=== PATIENT | female | born 1940 | race Caucasian/White ===

== ENCOUNTER 2020-12-10 07:49 | Inpatient (IN) | payer MEDICARE, BC ==
[~2020-12-10] VITALS: Ht 165.1 cm; Wt 86.6 kg
[~2020-12-10 07:49] MED LIST: ALEVE220 M1; ASPIRIN EC325 M1 PO; CARISOPRODOL 3350 MG PO; CENTRUM SILVER1 EAC1 PO; CITRACAL PLUS1 EACH; CITRACAL PLUS1 EACH PO; CYCLOBENZAPRINE10 MG PO; FISH OIL 1,001000 M1 PO; GELNIQUE30 GM; LISINOPRIL10 MG PO; MEDROLDOSEPACK PO; NASONEX17 GM NS; PERCOCET 5-3251 EACH PO; PREMARIN0.625 MG; RESVERATROL250 MG PO; SYNTHROID25 MCG PO; VITAMIN E400 UNIT PO
[2020-12-10] MEDS ORDERED: ELIQUIS5 MG PO (08:01)
[2020-12-10] MEDS ORDERED: LISINOPRIL20 MG PO (08:01)
[2020-12-10] MEDS ORDERED: AMITREX (08:02)
[2020-12-10] MEDS ORDERED: SYNTHROID25 MC1 PO (08:02)
[2020-12-10] MEDS ORDERED: CHLORTHALIDONE25 MG PO (08:02)
[2020-12-10 08:14] LABS: ABSOLUTE BASOPHILS 0.1 thou/uL (0.0-0.2); ABSOLUTE EOSINOPHILS 0.2 thou/uL (0.0-0.7); ABSOLUTE LYMPHOCYTES 4.3 thou/uL (0.8-5.3); ABSOLUTE MONOCYTES 0.8 thou/uL (0.0-1.2); ABSOLUTE NEUTROPHILS 4.3 thou/uL (1.6-8.1); BASOPHILS 0.9 %; EOSINOPHILS 1.9 %; HEMATOCRIT 41.8 % (37.0-47.0); HEMOGLOBIN 14.4 gm/dL (12.0-15.0); LYMPHOCYTES 44.7 %; MCH 32.6 pg (26.0-34.0); MCHC 34.5 g/dL (28.0-37.0); MCV 94.5 fL (80.0-100.0); MPV 7.8 fl. (7.2-11.1); NUCLEATED RBCS 0 /100WBC; PLATELET COUNT* 286 thou/uL (150-400); POLYS 44.5 %; RBC 4.42 mil/uL (4.20-5.00); RDW-CV 12.8 % (10.5-14.5); WBC 9.6 thou/uL (4.0-11.0)
[2020-12-10 08:15] LABS: CALCIUM 8.8 mg/dL (8.5-10.1); CREATININE 1.2 mg/dL (0.6-1.3)
[2020-12-10 08:23] LABS: APTT 21.6 Seconds (25.0-31.3); INR 0.9
[2020-12-10 08:25] LABS: ALBUMIN 3.3 g/dL (3.4-5.0); TOTAL BILIRUBIN 0.4 mg/dL (<0.1-1.0); TOTAL PROTEIN 6.8 g/dL (6.4-8.2)
[2020-12-10 10:40] LABS: URINE BILIRUBIN NEGATIVE (Negative); URINE BLOOD NEGATIVE (Negative); URINE CLARITY CLEAR; URINE COLOR YELLOW; URINE GLUCOSE-RANDOM NEGATIVE (Negative); URINE KETONES NEGATIVE (Negative); URINE PROTEIN NEGATIVE (Negative); URINE UROBILINOGEN 0.2 E.U./dl (0.2-1.0)
[2020-12-10 10:47] LABS: URINE LEUKOCYTES-REFLEX 3+ (Negative); URINE NITRITE-REFLEX POSITIVE (Negative)
[2020-12-10 10:58] LABS: CASTS None Seen /LPF (None Seen); CRYSTALS None Seen /LPF (None Seen); MUCUS None Seen strn/LPF (None Seen); SQUAMOUS 4-10 Moderate /LPF (0-3); URINE RBC 3-10 Few /HPF (0-2); URINE WBC-REFLEX >25 Many /HPF (0-5)
--- NOTE | 2020-12-10 12:54 | EKG ---
[place] [address] ELECTROCARDIOGRAM REPORT Name: DAJUAN GOLDSMITHMARLY Dia Room: [place] [address] ADM IN M.R.#: [id number] Admission: 12/10/20 Attend Phys: Minh Ocampo Discharge: Date of : 40 Date of Service: 12/10/20 0757 Report #: [id number] THIS REPORT FOR: //name// [facility] ED Test Date: 2020-12-10 Test Time: 07:57:12 Pat Name: RAFI GOLDSMITH Department: Room: [facility] Gender: F Scientific Illustrator: CD : 1940 Requested By: Balta Parra Order Number: [id number] MD: Josafat Rahman Measurements Intervals [place] Rate: 85 P: 65 [place]: 150 QRS: -33 QRSD: 99 T: 16 QT: 388 QTc: 462 Interpretive Statements Sinus rhythm Left axis deviation No previous ECG available for comparison Electronically Signed On 12-10-2020 12:54:40 [employer] by Josafat Rahman [email or web address] <ELECTRONICALLY SIGNED> By: Josafat Rahman MD, FAC 12/10/20 1254 [id number] Josafat Rahman MD, [facility] /EPI
[2020-12-10 14:50] VITALS: BP 120/60
[2020-12-10 16:14] LABS: CHOLESTEROL 209 mg/dL (<200); HDL CHOLESTEROL 67 mg/dL (>40); LDL CHOLESTEROL 122 mg/dL (<100); SERUM ASSESSMENT Clear; TC:HDL 3.1 Ratio (Not establshd); TRIGLYCERIDE 103 mg/dL (<150); VLDL 21 mg/dL (<40)
[2020-12-10 17:35] VITALS: BP 144/77
[2020-12-10 18:27] VITALS: BP 134/67
--- NOTE | 2020-12-10 18:31 | NUR ---
PT ORIENTED TO ROOM AND UNIT. BED LOW AND LOCKED, SIDE RAILS UPX3, CALL LIGHT IN REACH. TELE APPLIED. PT UNDERSDTANDS FALL RISK AND WILL USE CALL LIGHT WHEN NEEDING TO GET OUT OF BED.
[2020-12-10 20:19] VITALS: BP 112/54
[2020-12-11] VITALS: BP 109/60
[2020-12-11 04:00] VITALS: BP 133/73
[2020-12-11 04:06] LABS: GLYCOHEMOGLOBIN (HGB A1C) 5.4 % (4.8-5.6)
--- NOTE | 2020-12-11 05:43 | NUR ---
PT ADMITTED TO ROOM 231 JUST BEFORE SHIFT CHANGE; VSS, A+OX4, INTERMITTENT DIZZINESS, ROOM AIR, SR ON TELEMETRY. SHE IS ABLE TO COMMUNICATE HER NEEDS TO STAFF EFFECTIVELY. SHE HAS DENIED THE NEED FOR PAIN MEDICATION UP TO THIS TIME. SHE IS TENTATIVELY SCHEDULED TO HAVE US CAROTIDS LATER TODAY.
--- NOTE | 2020-12-11 07:25 | NUR ---
CHANGE OF SHIFT REPORT GIVERN PATIENT SEEN AT BEDSIDE, IN BED ASLEEP ASSUMED PATIENT CARE
[2020-12-11 08:00] VITALS: BP 123/65
--- NOTE | 2020-12-11 11:00 | NUR ---
CM SPOKE TO THE PT TO DISCUSS CM ASSESSMENT. PT A&O, INDEPENDENT WITH ADL'S, AND DRIVES. PT RESIDES AT HOME WITH SON. PT USES 0 DME. PT HAS 0 HX OF HH OR SNF. NO CM D/C PLANNING NEEDS ANTICIPATED. CM WILL REMAIN AVAILABLE TO ASSIST AND FOLLOW NEEDED.
[2020-12-11 12:00] VITALS: BP 119/70
[2020-12-11 16:00] VITALS: BP 125/83
[2020-12-11 20:29] VITALS: BP 122/59
[2020-12-12] VITALS: BP 133/71
[2020-12-12 04:00] VITALS: BP 123/72
--- NOTE | 2020-12-12 08:05 | NUR ---
PT IS ABLE TO COMMUNICATE HER NEEDS TO STAFF EFFECTIVELY. CURRENT PAIN MEDICATION REGIMEN HAS BEEN ADEQUATE FOR CONTROLLING HER PAIN UP TO THIS TIME. SHE HAS BEEN UP SBA TO THE COMODE OR BR OVERNIGHT WITH REPORTEDLY MINIMAL DIZZINESS. POSSIBLE MRI HEAD/COW TODAY PENDING APPROVAL. POSSIBLE DISCHARGE TODAY WELL.
[2020-12-12] MEDS ORDERED: CEFDINIR300 MG PO (08:56)
[2020-12-12 09:00] VITALS: BP 134/80
[2020-12-12 10:03] LABS: ALBUMIN 3.6 g/dL (3.4-5.0); CALCIUM 8.9 mg/dL (8.5-10.1); POTASSIUM 3.2 mmol/L (3.5-5.1); TOTAL BILIRUBIN 0.4 mg/dL (<0.1-1.0); TOTAL PROTEIN 6.7 g/dL (6.4-8.2)
[2020-12-12 12:00] VITALS: BP 123/78
[2020-12-12 12:58] VITALS: BP 134/80
--- NOTE | 2020-12-12 13:18 | NUR ---
CM INFORMED DURING PRIME ROUNDING OF THE PLAN OF CARE FOR THE PT. PLAN FOR PT TO D/C HOME TODAY WITH SELF-CARE. NO CM D/C PLANNING NEEDS ANTICIPATED. CM WILL REMAIN AVAILABLE TO ASSIST AND FOLLOW NEEDED.
--- NOTE | 2020-12-12 17:00 | NUR ---
I ASSUMED CARE OF THE PATIENT AT 0700. SHE IS ALERT AND ORIENTED X4, UP WITH SBA AND BED IS IN THE LOW LOCKED POSITION. CALL LIGHT IS IN REACH AND PAIN IS DENIED. HOURLY ROUNDING IS COMPLETED AND PATIENT NEEDS ARE MET. SHE WORKED WELL WITH PT AND OT. SHE LIVES AT HOME WITH HER SON AND HER FRIEND WAS HER TRANSPORTATION HOME AT DISCHARGE. SKIN IS C/D/I. MRI WAS NOT APPROVED AND WILL BE COMPLETED OUTPATIENT. SHE WAS D/C'D AT 1400.
--- NOTE | 2020-12-13 15:11 | NUR ---
pt called and reported [facility] had not been called in as per her discharge summary. Checked Discharge meds/med reconcil in Status board and confirmed this had not been called in upon pts discharge 12/12/20 Called to [facility] listed on pts chart, notified pt Rx called in
--- NOTE | 2020-12-15 21:14 | CON ---
[address] [address] CONSULTATION Name: RAFI GOLDSMITH Room: [address] IN M.R.#: [id number] Admission: 12/10/20 Attend Phys: Vic Murrieta Discharge: 12/12/20 Date of : 40 Report #: [id number] THIS REPORT FOR: cc: Anahi Cohen Lisa L. DO ~ Munir Mckay MD DATE OF SERVICE: 12/11/2020 HISTORY OF PRESENT ILLNESS: This is an 80-year-old female patient who was evaluated by me for sudden onset of dizziness. She was admitted for that. She had some facial numbness along with it. Symptoms have improved since that time. She also has pretty significant difficulty in walking. She said she has improved, but she does not know for sure because she has not walked with physical therapy so far and they have not worked with her so far. REVIEW OF SYSTEMS: A 14-point review of system was carried out, looks like she had a rough year. She had herpes zoster in the shoulder area on the right side. She had DVT. She had DVT in the past also and in fact she had a filter put in and that was subsequently removed and she also thinks she had pneumonia. Her son is a physician and she has been coordinating her care with that. She has a history of uterine cancer, thyroid cancer, arthritis, bilateral knee replacement. She also had a prior history of retinal detachment, but does not have any visual symptoms now. She denies any chest pain, respiratory difficulty, , GI, musculoskeletal, constitutional, dermatological, hematological, psychiatric, throat, allergic symptom associated with present symptomatology. PAST MEDICAL HISTORY: Positive for DVTs. FAMILY HISTORY: Unremarkable. SOCIAL HISTORY: She does not smoke or drink any alcohol. PHYSICAL EXAMINATION: VITAL SIGNS: Indicated blood pressure of 123/65, respirations 19, pulse is 81, temperature is 98.5. NEUROLOGICAL: Indicate she is alert, responsive, able to follow simple and complex command. Her memory looks preserved. Her speech looks preserved. Cranial nerve examination 2-12 is noncontributory. Neuromuscular examination has checked for strength, sensation, reflexes and tone is symmetrical. There is no meningeal sign. She is reasonably good built individual. She does not have any dysmorphic features of eyes, ears and face. She does not have any thyroid mass or carotid bruit. She says she has some discoloration of the feet, which is being checked [place] [address] CONSULTATION Name: RAFI GOLDSMITH Room: [address]#: [id number] Admission: 12/10/20 Attend Phys: Vic Murrieta Discharge: 12/12/20 Date of : 40 Report #: [id number] HEART: Cardiac examination is unremarkable. PULMONARY: No respiratory difficulty was noticed. DIAGNOSTIC STUDIES: She had numerous testing done. She had a CT scan of the head, which does not show any acute abnormality. Carotid Doppler was mostly unremarkable. LABORATORY DATA: White count is 9.6. GFR is only 43 and she did have a CT of the chest. IMPRESSION AND PLAN: This symptom the patient is having is most likely because of ENT pathology. However, she has a history of multiple DVT and she had some facial pain along with it. I will suggest doing an MRI of the brain and MRA of the [place]. We will order that. If those tests are okay then the patient needs an ENT evaluation. She also needs to have follow up. That may have to be done as an outpatient because no ENT physician comes here. Her cholesterol is high that needs to be treated and also GFR is low at 43 and we will defer to you anything especially because she got a contrast. I will suggest looking at the patient's MRI and MRA of the [place]. We will follow up this patient if any pathology is there, otherwise, the patient may need ENT management. I discussed all of it with the patient in detail. Thank you very much for this referral and if you have any question, please feel free to contact me. <ELECTRONICALLY SIGNED> By: Munir Mckay MD 12/15/20 2114 1411 11Munir Mckay MD /nt
== END 2020-12-12 13:55 | disposition home or self-care (01) | DRG 69 ==
LOC: M.ERS 07:49 → M.TBA-ER 10:51 → M.2W 10:51
PROVIDERS: Family Medicine; Internal Medicine; ADMIT Internal Medicine; ATTEND Internal Medicine
DX: G45.0 Vertebro-basilar artery syndrome (principal); N39.0 Urinary tract infection, site not specified; H81.10 Benign paroxysmal vertigo, unspecified ear; Z96.653 Presence of artificial knee joint, bilateral; M19.90 Unspecified osteoarthritis, unspecified site; I10 Essential (primary) hypertension; Z20.822 Contact with and (suspected) exposure to COVID-19; Z85.42 Personal history of malignant neoplasm of other parts of uterus; Z85.850 Personal history of malignant neoplasm of thyroid; Z86.718 Personal history of other venous thrombosis and embolism; Z88.8 Allergy status to other drugs, medicaments and biological substances; Z82.49 Family history of ischemic heart disease and other diseases of the circulatory system